=== PATIENT | male | born 1995 | race Caucasian/White ===

== ENCOUNTER 2022-05-22 16:19 | Emergency (ER) | payer OTHER, MEDICAID, SELFPAY ==
[2022-05-22 16:25] VITALS: BP 129/75; PULSE 83; RESP 18; TEMP 37.2; O2SAT 99
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
[2022-05-22] MEDS: HYDROCODONE-ACETAMIN 5-325 MG 1 TAB 2 TAB PO (18:48)
== END 2022-05-22 18:54 | disposition home or self-care (01) ==
PROVIDERS: Emergency Provider Family Medicine; PCP Family Medicine
DX: T15.02XA Foreign body in cornea, left eye, initial encounter (principal); H02.815 Retained foreign body in left lower eyelid
CPT/HCPCS: 65222; 99283; 99284; A9270

== ENCOUNTER 2023-01-29 18:45 | Emergency (ER) | payer MEDICAID, SELFPAY ==
[2023-01-29] VITALS (30 sets, daily range): BP systolic 113–143; BP diastolic 66–104; PULSE 71–85; O2SAT 96–99
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
[2023-01-29 19:08] LABS: Basophils Percent Auto 0.3 % (0.0-3.0); Eosinophils Percent Auto 1.4 % (0.0-7.0); Hematocrit 47.2 % (37.0-53.0); Hemoglobin* 16.3 gm/dL (13.5-17.5); Immature Granulocytes Pct Auto 0.2 %; Lymphocytes Percent Auto 40.3 % (20-44); Mean Corpuscular HGB Conc 35 gm/dL (32-36); Mean Corpuscular Hemoglobin 31 pg (26-34); Mean Corpuscular Volume 89 fL (80-100); Monocytes Percent Auto 9.7 % (0.0-11.0); Neutrophils Percent Auto 48.1 % (42.0-72.0); Platelet Count* 501 K/uL (140-440); RDW Coefficient of Variation % 12.1 % (11.5-15.5)
[2023-01-29 19:13] LABS: Slide Review Reflex No
[2023-01-29 19:16] LABS: Chloride* 105 mmol/L (96-114)
[2023-01-29 19:17] LABS: Potassium* 3.6 mmol/L (3.6-5.1); Sodium* 140 mmol/L (135-149)
[2023-01-29 19:19] LABS: Anion Gap 14 mEq/L (7-15); Aspartate Amino Transferase* 34 U/L (12-35); Bilirubin Total* 0.6 mg/dL (0.1-1.5); Blood Urea Nitrogen* 15 mg/dL (5-24); Carbon Dioxide* 21 mmol/L (20-32); Estimated Glomerular Filt Rate 105 ml/min; Total Protein* 8.6 g/dL (6.0-8.3)
[2023-01-29 19:20] LABS: Alanine Aminotransferase* 45 U/L (4-50); Alkaline Phosphatase* 73 U/L (40-150); Calcium* 9.5 mg/dL (8.4-10.6); Glucose* 100 mg/dL (60-115)
[2023-01-29 19:30] LABS: Ethanol* < 0.01 % (0.01-0.03)
--- NOTE | 2023-01-29 21:00 | ED.NURSE ---
dispatch paged for transfer, told they would be here within the hour
--- NOTE | 2023-01-29 21:34 | ED.NURSE ---
nurse to nurse report given to Sandrita at [facility] emergency room
== END 2023-01-29 21:38 | disposition short-term general hospital (02) ==
PROVIDERS: Emergency Provider Family Medicine
DX: M25.531 Pain in right wrist (principal); S02.40FA Zygomatic fracture, left side, initial encounter for closed fracture; S02.40DA Maxillary fracture, left side, initial encounter for closed fracture; V29.39XA Other motorcycle (driver) (passenger) injured in unspecified nontraffic accident, initial encounter
CPT/HCPCS: 36415; 70450; 70486; 71045; 73110; 76604; 76705; 80053; 82077; 85025; 93308; 94761; 99285; 99291; G0390

== ENCOUNTER 2023-01-29 21:24 | Outpatient (CLI) | payer MEDICAID, SELFPAY | END 2023-01-29 21:25 | disposition home or self-care (01) | LOC: AMB 02-04 14:24 | PROVIDERS: Visit Provider Student in an Organized Health Care Education/Training Program | DX: S69.92XS Unspecified injury of left wrist, hand and finger(s), sequela (principal); S02.40FS Zygomatic fracture, left side, sequela; S02.40DS Maxillary fracture, left side, sequela; T07.XXXS Unspecified multiple injuries, sequela | CPT/HCPCS: A0425; A0427 ==